=== PATIENT | female | born 1955 | race Caucasian/White ===

== ENCOUNTER → 2020-02-17 | Outpatient (CLI) | payer BC | END | disposition home or self-care (01) | LOC: LAB SHORT 14:47 → PLD 14:47 | DX: C44.719 Basal cell carcinoma of skin of left lower limb, including hip (principal) | CPT/HCPCS: 88305 ==

== ENCOUNTER → 2020-07-19 | Outpatient (CLI) | payer BC | LOC: LAB SHORT 08:24 | DX: D48.5 Neoplasm of uncertain behavior of skin (principal); C44.712 Basal cell carcinoma of skin of right lower limb, including hip | CPT/HCPCS: 88305 ==

== ENCOUNTER → 2021-08-01 | Outpatient (CLI) | payer BC ==
[~2021-08-01] MED LIST: CALCIUM 250-D1 EAC1; ESTRING VAG; OMEP20ER PO; VEGAN OMEGA; VITAMIN B122500 MC1 PO; VITAMIN D32000 UNI1 PO
== END | disposition home or self-care (01) ==
LOC: LAB SHORT 12:07 → PLD 12:07
DX: D48.5 Neoplasm of uncertain behavior of skin (principal)
CPT/HCPCS: 88305

== ENCOUNTER 2021-08-10 11:00 | Day surgery (SDC) | payer BC ==
[~2021-08-10] VITALS: Ht 172.7 cm; Wt 65.5 kg
[~2021-08-10 11:00] MED LIST changes: -CALCIUM 250-D1 EAC1; -VEGAN OMEGA; -VITAMIN B122500 MC1 PO; -VITAMIN D32000 UNI1 PO
[2021-08-10] MEDS ORDERED: CALCIUM 250-D1 EAC1 (11:29)
[2021-08-10] MEDS ORDERED: VITAMIN D32000 UNI1 PO (11:29)
[2021-08-10] MEDS ORDERED: VITAMIN B122500 MC1 PO (11:29)
[2021-08-10] MEDS ORDERED: VEGAN OMEGA (11:30)
== END 2021-08-10 15:12 | disposition home or self-care (01) ==
LOC: ORSCSDS 11:00
PROVIDERS: Internal Medicine Gastroenterology
PROC: 0D757ZZ Dilation of Esophagus, Via Natural or Artificial Opening (ICD-10-PCS; principal; 2021-08-10 12:15)
PROC: 0DJD8ZZ Inspection of Lower Intestinal Tract, Via Natural or Artificial Opening Endoscopic (ICD-10-PCS; principal; 2021-08-10 12:15)
PROC: 0DB58ZX Excision of Esophagus, Via Natural or Artificial Opening Endoscopic, Diagnostic (ICD-10-PCS; principal; 2021-08-10 12:15)
DX: R13.10 Dysphagia, unspecified (principal); K21.9 Gastro-esophageal reflux disease without esophagitis; Z12.11 Encounter for screening for malignant neoplasm of colon; Z86.010 Personal history of colon polyps; Z79.899 Other long term (current) drug therapy
CPT/HCPCS: 43239; 43450; G0105; 88305; J2704; J7120

== ENCOUNTER → 2022-02-01 | Outpatient (CLI) | payer BC ==
[~2022-02-01] MED LIST changes: +CALCIUM 250-D1 EAC1; +VEGAN OMEGA; +VITAMIN B122500 MC1 PO; +VITAMIN D32000 UNI1 PO
== END | disposition home or self-care (01) ==
LOC: LAB SHORT 11:08 → PLD 11:08
DX: L57.0 Actinic keratosis (principal); L82.1 Other seborrheic keratosis
CPT/HCPCS: 88305; 88312

== ENCOUNTER → 2022-08-13 | Outpatient (CLI) | payer BC, MEDICARE | LOC: LAB SHORT 13:30 → PLD 13:30 | DX: D48.5 Neoplasm of uncertain behavior of skin (principal) | CPT/HCPCS: 88305 ==